=== PATIENT | male | born 1985 | race Asian ===

== ENCOUNTER 2017-07-03 14:50 | Emergency (ER) | payer BC, OTHER ==
[2017-07-03 15:02] VITALS: TEMP 98.8; BMI 42.5
--- NOTE | 2017-07-03 15:02 | PDOC ---
History of Present Illness - General History Source: Patient Exam Limitations: No Limitations - History of Present Illness Initial Comments: 07/03/17 15:36 The patient is a 31 year old male with no significant past medical history who presents to the ED with complaints of chest pain for two days. The patient reports an onset of intermittent left sided chest pain that radiates to his left sided back yesterday. Patient states his chest pain is worsened when moving his neck and his arm. The patient reports a recent weight loss secondary to a change in diet and increase in physical activity. He states he was on the treadmill 2 hours prior to his arrival to the ED and notes it did not worsen his present symptoms. Patient reports he typically gets similar symptoms 2-3 times a year and notes it typically goes away on its own. Denies shortness of breath or palpitations. Denies fever or chills. Denies abdominal pain, nausea ,vomiting, or diarrhea. Denies any other symptoms. 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 He reports drinking 2 cups of coffee a day. Family hx: Diabetes and high blood pressure. Denies a history of cardiac disease. <Haseeb Hills - Last Filed: 07/03/17 15:41> <Alma Sanchez - Last Filed: 07/03/17 17:07> - General Chief Complaint: Chest Pain Stated Complaint: CHEST PAIN Time Seen by Provider: 07/03/17 14:57 Past History <Haseeb Hills - Last Filed: 07/03/17 15:41> - Past Medical History COPD: No Other medical history: pt denies - Suicide/Smoking/Psychosocial Hx Smoking Status: No Smoking History: Never smoked Have you smoked in the past 12 months: No Number of Cigarettes Smoked Daily: 0 Hx Alcohol Use: Yes (SOCIAL) Drug/Substance Use Hx: No Substance Use Type: Alcohol <Alma Sanchez - Last Filed: 07/03/17 17:07> - Past Medical History Allergies/Adverse Reactions: Allergies Allergy/AdvReac Type Severity Reaction Status Date / Time No Known Allergies Allergy Verified 07/03/17 14:51 Home Medications: Ambulatory Orders NK [No Known Home Medication] 07/03/17 Review of Systems - Review of Systems Able to Perform ROS?: Yes Comments:: 07/03/17 15:42 GENERAL/CONSTITUTIONAL: No fever or chills. No weakness. HEAD, EYES, EARS, NOSE AND THROAT: No change in vision. No ear pain or discharge. No sore throat. CARDIOVASCULAR: + chest pain. No shortness of breath. RESPIRATORY: No cough, wheezing, or hemoptysis. GASTROINTESTINAL: No nausea, vomiting, diarrhea or constipation. GENITOURINARY: No dysuria, frequency, or change in urination. MUSCULOSKELETAL: No joint or muscle swelling or pain. No neck or back pain. SKIN: No rash NEUROLOGIC: No headache, vertigo, loss of consciousness, or change in strength/ sensation. ENDOCRINE: No increased thirst. No abnormal weight change. HEMATOLOGIC/LYMPHATIC: No anemia, easy bleeding, or history of blood clots. ALLERGIC/IMMUNOLOGIC: No hives or skin allergy. All Other Systems: Reviewed and Negative <Haseeb Hills - Last Filed: 07/03/17 15:41> *Physical Exam - Vital Signs Last Vital Signs Temp Pulse Resp BP Pulse Ox 98.8 F 88 16 120/71 98 07/03/17 14:51 07/03/17 14:51 07/03/17 14:51 07/03/17 14:51 07/03/17 14:51 - Physical Exam Comments: 07/03/17 15:42 GENERAL: Awake, alert, and fully oriented, in no acute distress HEAD: No signs of trauma EYES: PERRLA, EOMI, sclera anicteric, conjunctiva clear ENT: Auricles normal inspection, hearing grossly normal, nares patent, oropharynx clear without exudates. Moist mucosa NECK: Normal ROM, supple, no lymphadenopathy, JVD, or masses LUNGS: Breath sounds equal, clear to auscultation bilaterally. No wheezes, and no crackles HEART: Regular rate and rhythm, normal S1 and S2, no murmurs, rubs or gallops ABDOMEN: Soft, nontender, normoactive bowel sounds. No guarding, no rebound. No masses EXTREMITIES: Normal range of motion, no edema. No clubbing or cyanosis. No cords, erythema, or tenderness NEUROLOGICAL: Normal speech SKIN: Warm, Dry, normal turgor, no rashes or lesions noted. <Haseeb Hills - Last Filed: 07/03/17 15:41> Heart Score/ECG Review - History History: Moderately suspicious - Electrocardiogram EKG: Non specific repolarization disturbance - Age Age: </= 45 - Risk Factors Risk Factors Heart Score: Yes Hx Obesity Based on the list above the patient has:: 1-2 risk factors - Troponin Troponin: </= normal limit - Score Heart Score - Total: 3 - ECG Impressions Comment:: EKG read 15:01- NSR 79 bpm, no acute ST/T changes. +Q waves to inferior leads. Q waves present on prior EKG in [facility] from 2013. <Alma Sanchez - Last Filed: 07/03/17 17:07> ED Treatment Course - LABORATORY CBC & Chemistry Diagram: 07/03/17 15:15 07/03/17 15:15 - Medications Given in the ED: ED Medications Discontinued Medications Generic Name Dose Route Start Last Admin Trade Name Freq PRN Reason Stop Dose Admin Aspirin 81 mg 07/03/17 15:26 07/03/17 15:35 Asa - PO 07/03/17 15:27 81 mg ONCE ONE Administration <Haseeb Hills - Last Filed: 07/03/17 15:41> - LABORATORY CBC & Chemistry Diagram: 07/03/17 15:15 07/03/17 15:15 <Alma Sanchez - Last Filed: 07/03/17 17:07> Medical Decision Making - Medical Decision Making 07/03/17 17:05 Patient has Q waves in the inferior leads, present on prior EKG. This has not been worked up in the past. Concerning that he has presented with chest pain multiple times. Recommended repeat CE at the very least, however, patient refused further workup. He agrees to outpatient cardio f/u. Counseled him of the risks of departing with an incomplete workup, including sudden cardiac . He states he still wishes to depart AMA. Discussed with at bedside. <Alma Sanchez - Last Filed: 07/03/17 17:07> *DC/Admit/Observation/Transfer - Attestations Scribe Attestion: 07/03/17 15:42 Documentation prepared by Haseeb Hills, acting as medical practice assistant for Alma Sanchez MD <Haseeb Hills - Last Filed: 07/03/17 15:41> <Alma Sanchez - Last Filed: 07/03/17 17:07> Diagnosis at time of Disposition: Chest pain Qualifiers: Chest pain type: unspecified Qualified Code(s): R07.9 - Chest pain, unspecified - Discharge Dispostion Disposition: AGAINST MEDICAL ADVICE Condition at time of disposition: Stable - Referrals Referrals: Brian Ramirez MD [Staff Physician] - - Patient Instructions Printed Discharge Instructions: DI for Chest Pain Additional Instructions: Please follow up with your primary care physician and a shaft headman as soon as possible. If the pain persists or worsens, return to the ER immediately. You are always welcome to return at any time for any concern.
[2017-07-03] MEDS ORDERED: ASPIRIN 81 MG CHEWABLE TABLETS PO ONE (15:26)
[2017-07-03] MEDS ORDERED: ASPIRIN 81 MG CHEWABLE TABLETS ONE (15:33)
[2017-07-03 15:43] LABS: BASOPHIL 0.3 % (0-2.0); EOSINOPHIL 6.1 % (0-4.5); MCH 25.6 pg (25.7-33.7); MCHC 33.2 g/dl (32.0-35.9); MEAN PLT VOLUME 9.6 fl (7.5-11.1); NEUTROPHILS 57.2 % (42.8-82.8); PLATELET COUNT 213 K/MM3 (134-434); RDW 13.3 % (11.9-15.9); WHITE BLOOD COUNT 12.4 K/mm3 (4.0-10.8)
[2017-07-03 15:45] LABS: ALBUMIN 4.2 g/dl (3.5-5.0); ALK PHOS 24 U/L (32-92); ANION GAP 8 (8-16); BILIRUBIN,TOTAL 0.7 mg/dl (0.2-1.0); CALCIUM 9.6 mg/dl (8.4-10.2); CO2 25 mmol/L (22-28); CPK 499 IU/L (39-308); CREATININE 1.2 mg/dl (0.6-1.3); GLUCOSE,RANDOM 86 mg/dl (74-106); SGOT/AST 32 U/L (10-42); SGPT/ALT 50 U/L (10-40); TOT PROT 7.5 g/dl (6.4-8.3)
[2017-07-03 16:20] LABS: TROPONIN I (DFP) < 0.03 ng/ml (0.03-0.50)
[2017-07-03 16:39] VITALS: BP 143/83; PULSE 96
--- NOTE | 2017-07-04 17:51 | EKG ---
Test Reason : Blood Pressure : / mmHG Vent. Rate : 079 BPM Atrial Rate : 079 BPM P-R Int : 184 ms QRS Dur : 110 ms QT Int : 390 ms P-R-T Axes : 054 083 -13 degrees QTc Int : 447 ms SINUS RHYTHM NONSPECIFIC T WAVE ABNORMALITY WHEN COMPARED WITH ECG OF 08-JUN-2014 18:01, NO SIGNIFICANT CHANGE WAS FOUND Confirmed by HAROON RUTHERFORD MD ([id number]) on 07/04/2017 5:51:09 PM Referred By: RADHA DAS Confirmed By:HAROON RUTHERFORD MD
== END 2017-07-03 17:15 | disposition left against medical advice (07) ==
LOC: FER 14:50
DX: R07.9 Chest pain, unspecified (principal)
CPT/HCPCS: 36415; 71010-TC; 80053; 82550; 82553; 84484; 85025; 93005; 99283-25

== ENCOUNTER 2023-12-09 09:05 | Emergency (ER) | payer BC, OTHER ==
[2023-12-09 09:10] VITALS: BP 119/80; PULSE 74; RESP 18; TEMP 98.4; BMI 44.6
[2023-12-09] MEDS ORDERED: DEXAMETHASONE SOD PHOSPHATE 10 MG/1 ML VIAL ONE (10:23)
[2023-12-09] MEDS ORDERED: diazePAM 5 MG TABLET ONE (10:24)
[2023-12-09] MEDS ORDERED: LIDOCAINE 5% TOPICAL PATCH ONE (10:24)
[2023-12-09] MEDS: diazePAM 5 MG TABLET PO ONE (10:33)
[2023-12-09] MEDS: DEXAMETHASONE SOD PHOSPHATE 10 MG/1 ML VIAL IM ONE (10:33)
[2023-12-09] MEDS: LIDOCAINE 5% TOPICAL PATCH TP ONE (10:33)
[2023-12-09] MEDS ORDERED: LIDOCAINE PATCH REMOVAL MC SCH (22:00)
== END 2023-12-09 10:47 | disposition home or self-care (01) ==
LOC: FER 09:05
PROC: 3E023GC Introduction of Other Therapeutic Substance into Muscle, Percutaneous Approach (ICD-10-PCS; principal; 2023-12-09)
DX: M54.50 Low back pain, unspecified (principal)
CPT/HCPCS: 99284-25; J1100